=== PATIENT | female | born 1980 ===

== ENCOUNTER 2017-11-01 04:09 | Observation (INO) | payer MEDICAID ==
[2017-11-01 04:15] VITALS: BMI 27.2
--- NOTE | 2017-11-01 04:27 | ED PDOC ---
Arrival/HPI - General Chief Complaint: Chest Pain Time Seen by Provider: 11/01/17 04:13 Historian: Patient - History of Present Illness Narrative History of Present Illness (Text): 11/01/17 04:27 Tracey Stubbs is a 37 year old female who presents to the Emergency department brought in by EMS complaining of chest pain. Patient states she woke up tonight with mid-sternal chest pain radiating down her left arm with associated palpitations. Patient states she experienced a similar episode earlier this week and was seen by her PMD. Patient received Aspirin and sublingual nitroglycerin en route to the hospital. Patient denies any fever, chills, shortness of breath, nausea, vomiting, diarrhea, neck pain, headache, dizziness, or any other complaints. Time/Duration: Other (tonight) Symptom Onset: Gradual Symptom Course: Unchanged Activities at Onset: Light Context: Home Past Medical History - Provider Review Nursing Documentation Reviewed: Yes - Cardiac Other/Comment: Tachycardia - Pulmonary Hx Respiratory Disorders: No - Neurological Hx Neurological Disorder: No - HEENT Hx HEENT Disorder: No - Renal Hx Renal Disorder: No - Endocrine/Metabolic Hx Endocrine Disorders: No - Hematological/Oncological Hx Blood Disorders: No - Integumentary Hx Dermatological Disorder: No - Musculoskeletal/Rheumatological Hx Musculoskeletal Disorders: No - Gastrointestinal Hx Gastrointestinal Disorders: No - Genitourinary/Gynecological Hx Genitourinary Disorders: No - Psychiatric Hx Psychophysiologic Disorder: No Hx Substance Use: No - Surgical History Hx Section: Yes (x2) Hx Hysterectomy: Yes - Anesthesia Hx Anesthesia: Yes Hx Anesthesia Reactions: No Hx Malignant Hyperthermia: No Family/Social History - Physician Review Nursing Documentation Reviewed: Yes Family/Social History: Unknown Family HX Smoking Status: Never Smoked Hx Alcohol Use: No Hx Substance Use: No Allergies/Home Meds Allergies/Adverse Reactions: Allergies Penicillins Allergy (Verified 11/01/17 04:15) RASH Home Medications: Home Meds Medication Instructions Recorded Confirmed No Known Home Med 11/01/17 11/01/17 Review of Systems - Physician Review All systems were reviewed & negative as marked: Yes - Review of Systems Constitutional: Normal. absent: Fevers Eyes: Normal ENT: Normal Respiratory: Normal. absent: SOB Cardiovascular: Chest Pain, Palpitations Gastrointestinal: Normal. absent: Abdominal Pain, Diarrhea, Nausea, Vomiting Genitourinary Female: Normal. absent: Dysuria, Frequency, Hematuria, Urine Output Changes Musculoskeletal: Normal. absent: Back Pain, Neck Pain Skin: Normal. absent: Rash Neurological: Normal. absent: Headache, Dizziness Endocrine: Normal Hemo/Lymphatic: Normal Psychiatric: Normal Physical Exam Vital Signs Reviewed: Yes Vital Signs Temp Pulse Resp BP Pulse Ox 11/01/17 07:06 97.9 F 76 18 128/77 99 11/01/17 06:49 65 18 136/75 98 11/01/17 04:12 98.2 F 85 18 129/88 100 Temperature: Afebrile Blood Pressure: Normal Pulse: Regular Respiratory Rate: Normal Appearance: Positive for: Well-Appearing, Non-Toxic, Comfortable Pain Distress: None Mental Status: Positive for: Alert and Oriented X 3 - Systems Exam Head: Present: Atraumatic, Normocephalic Pupils: Present: PERRL Extroacular Muscles: Present: EOMI Conjunctiva: Present: Normal Mouth: Present: Moist Mucous Membranes Neck: Present: Normal Range of Motion Respiratory/Chest: Present: Clear to Auscultation, Good Air Exchange. No: Respiratory Distress, Accessory Muscle Use Cardiovascular: Present: Regular Rate and Rhythm, Normal S1, S2. No: Murmurs Abdomen: No: Tenderness, Distention, Peritoneal Signs Back: Present: Normal Inspection Upper Extremity: Present: Normal Inspection. No: Cyanosis, Edema Lower Extremity: Present: Normal Inspection. No: Edema Neurological: Present: GCS=15, CN II-XII Intact, Speech Normal Skin: Present: Warm, Dry, Normal Color. No: Rashes Psychiatric: Present: Alert, Oriented x 3, Normal Insight, Normal Concentration Medical Decision Making ED Course and Treatment: 11/01/17 04:27 Impression: 37 year old female complaining of chest pain radiating to her left arm and palpitations. Plan: -- EKG -- Chest X-ray -- Labs, cardiac enzymes -- Reassess and disposition Progress Notes: Reviewed EKG, NSR at [address]-segment elevations or depressions, no T-wave inversions, normal intervals. 11/01/17 05:45 Chest X-ray reviewed, shows no acute processes. Case discussed with medical appliance maker stone carver, who is aware and agrees with plan. Paged Dr. Alford. 11/01/17 05:[address] Alford, who is aware and agrees with plan. Accepts pt in to hospitalist service. Pt will go to remote telemetry observation for chest pain. - Lab Interpretations Lab Results: 11/01/17 04:20 11/01/17 04:20 Lab Results 11/01/17 04:47: PT 11.8, INR 1.03, APTT 28.6 11/01/17 04:40: D-Dimer, Quantitative < 200 11/01/17 04:20: Free T4 1.17, TSH 3rd Generation 1.76 11/01/17 04:20: Hemoglobin A1c 5.3 11/01/17 04:20: Phosphorus 2.8, Magnesium 2.0, Triglycerides 131, Cholesterol 162, LDL Cholesterol Direct 82, HDL Cholesterol 53 11/01/17 04:20: WBC 6.8, RBC 5.01, Hgb 15.0, Hct 42.0, MCV 83.8, MCH 29.9, MCHC 35.7, RDW 12.1, Plt Count 172, MPV 11.7 H 11/01/17 04:20: Sodium 143, Potassium 3.4 L, Chloride 108 H, Carbon Dioxide 22, Anion Gap 17, BUN 13, Creatinine 0.5 L, Est GFR ( Amer) > 60, Est GFR ( Non-Af Amer) > 60, Random Glucose 118 H, Calcium 9.4, Total Bilirubin 2.3 H, AST 28, ALT 34, Alkaline Phosphatase 69, Lactate Dehydrogenase 452, Total Creatine Kinase 112, Troponin I < 0.01, Total Protein 8.0, Albumin 4.8, Globulin 3.2, Albumin/Globulin Ratio 1.5 I have reviewed the lab results: Yes - RAD Interpretation Radiology Orders: 11/01/17 04:21 CHEST PORTABLE [RAD] Stat Human Resources Records Clerk: ED Physician - EKG Interpretation Interpreted by ED Physician: Yes Type: 12 lead EKG - Medication Orders Current Medication Orders: Discontinued Medications Aspirin (Aspirin Chewable) 81 mg PO DAILY [facility] Last Admin: 11/02/17 09:25 Dose: 81 mg Heparin Sodium (Porcine) (Heparin) 5,000 units SC Q12 CAMELIA PRN Reason: Protocol Last Admin: 11/02/17 09:25 Dose: 5,000 units Subcutaneous Administrations Document 11/02/17 09:25 GM (Rec: 11/02/17 09:25 GM [id number]) Injection Site MAR Injection Site Left Abdomen Charges for Administration # of Subcutaneous Administrations 1 Potassium Chloride (K-Dur 20 Meq Er Tab) 20 meq PO ONCE ONE Stop: 11/01/17 07:38 Last Admin: 11/01/17 08:00 Dose: 20 meq - Scribe Statement The provider has reviewed the documentation as recorded by the Millieibcarrol Simpson All medical record entries made by the Millieibcarrol were at my direction and personally dictated by me. I have reviewed the chart and agree that the record accurately reflects my personal performance of the history, physical exam, medical decision making, and the department course for this patient. I have also personally directed, reviewed, and agree with the discharge instructions and disposition. Disposition/Present on Arrival - Present on Arrival Any Indicators Present on Arrival: No History of DVT/PE: No History of Uncontrolled Diabetes: No Urinary Catheter: No History of Decub. Ulcer: No History Surgical Site Infection Following: None - Disposition Have Diagnosis and Disposition been Completed?: Yes Diagnosis: Chest pain Disposition: HOSPITALIZED Disposition Time: 05:46 Patient Plan: Observation Condition: STABLE
[2017-11-01 04:50] LABS: MEAN CELL VOLUME 83.8 fl (80.0-105.0); MEAN CORPUSCULAR HEMOGLOBIN 29.9 pg (25.0-35.0); MEAN CORPUSCULAR HGB CONC 35.7 g/dl (31.0-37.0); MEAN PLATELET VOLUME 11.7 fl (7.0-11.0); RBC 5.01 10^6/uL (3.5-6.1); RED CELL DISTRIBUTION WIDTH 12.1 % (11.5-14.5); WHITE BLOOD COUNT 6.8 10^3/ul (4.5-11.0)
[2017-11-01 04:54] LABS: ALB/GLOB RATIO 1.5 (1.1-1.8); ALBUMIN 4.8 g/dL (3.0-4.8); ALT/SGPT 34 U/L (7-56); AST/SGOT 28 U/L (14-36); BLOOD UREA NITROGEN 13 mg/dL (7-21); CALCIUM 9.4 mg/dL (8.4-10.5); GFR AFRICAN-AMERICAN > 60; GFR NON-AFRICAN AMERICAN > 60
[2017-11-01 05:05] LABS: INR 1.03; PROTHROMBIN TIME 11.8 SECONDS (9.4-12.5)
[2017-11-01 05:05] LABS: TROPONIN I < 0.01 ng/mL
[2017-11-01 05:08] LABS: PARTIAL THROMBOPLASTIN TIME 28.6 Seconds (25.1-36.5)
[2017-11-01] MEDS ORDERED: Potassium Chloride 20 mEq ER Tab PO ONE (07:37)
--- NOTE | 2017-11-01 07:54 | CP.PCM.HP ---
<Tea Cabrera - Last Filed: 11/01/17 16:01> History of Present Illness - History of Present Illness History of Present Illness: PGY3 Medicine note for Dr. Chaidez CC: I had tachycardia and my chest hurt HPI: 37 year old female PMHx of paroxysmal tachycardia on no meds presents with chest pain and palpitations that woke her up. Patient reports pain was midsternal 9/10 and radiated to her left arm and up the left side of her jaw. She also complained of shortness of breath and dizziness. Patient did not take anything to alleviate the pain and could not identify any exacerbating factors. Patient was brought in by EMS and she received a dose of ASA and sublingual nitro. In the ED patient reported the sharp pain had resolved and she was experiencing some mild left sided chest pressure 1-2/10 in intensity. In the ED she had no associated SOB, palpitations, and dizziness. The last time the patient had experienced similar symptoms was 1 week ago. Patient denied any recent travel; her recent sick contact was her 2 year old son who had pneumonia 1 month ago. Of note, patient reports she has had paroxysmal tachcyardia since she was 11 years old; these episodes usually last a couple minutes and resolve spontaneously. Patient was seen by a communication equipment mechanic and had an echo but she never followed up. ROS: admits: headache, dizziness [resolved], chest pressure, palpitations [resolved] , dyspnea [resolved], denies: fever, chills, cough, abdominal pain, nausea, vomiting, bowel/bladder complaints, pain/swelling in her legs b/l PMHx: paroxysmal tachycardia PSurgHx: 2 c-sections (2012, 2014) and partial hysterectomy (2017) FamHx: father with atherosclerosis, mother HTN, grandmother [place] SocHx: no tobacco hx or use; used to drink EtOH socially [1 glass of wine at a green party] but no longer does; denies drug use. Meds: none ALL: PCN Present on Admission - Present on Admission Any Indicators Present on Admission: No Review of Systems - Review of Systems All systems: reviewed and no additional remarkable complaints except - Constitutional Constitutional: As Per HPI. absent: Chills, Fever - EENT Eyes: As Per HPI. absent: Blurred Vision Ears: As Per HPI, Dizziness Nose/Mouth/Throat: As Per HPI. absent: Sore Throat - Cardiovascular Cardiovascular: As Per HPI, Chest Pain, Dyspnea, Palpitations - Respiratory Respiratory: As Per HPI, Dyspnea. absent: Cough - Gastrointestinal Gastrointestinal: As Per HPI. absent: Abdominal Pain, Constipation, Diarrhea, Nausea, Vomiting - Genitourinary Genitourinary: As Per HPI. absent: Dysuria, Hematuria - Integumentary Integumentary: As Per HPI. absent: Dry Skin - Neurological Neurological: As Per HPI, Headaches. absent: Dizziness - Psychiatric Psychiatric: As Per HPI. absent: Anxiety - Endocrine Endocrine: As Per HPI, Palpitations. absent: Polydipsia, Polyphagia - Hematologic/Lymphatic Hematologic: As Per HPI. absent: Easy Bleeding, Easy Bruising Past Patient History - Past Social History Smoking Status: Never Smoked - CARDIAC Other/Comment: Tachycardia - PULMONARY Hx Respiratory Disorders: No - NEUROLOGICAL Hx Neurological Disorder: No - HEENT Hx HEENT Problems: No - RENAL Hx Chronic Kidney Disease: No - ENDOCRINE/METABOLIC Hx Endocrine Disorders: No - HEMATOLOGICAL/ONCOLOGICAL Hx Blood Disorders: No - INTEGUMENTARY Hx Dermatological Problems: No - MUSCULOSKELETAL/RHEUMATOLOGICAL Hx Musculoskeletal Disorders: No - GASTROINTESTINAL Hx Gastrointestinal Disorders: No - GENITOURINARY/GYNECOLOGICAL Hx Genitourinary Disorders: No - PSYCHIATRIC Hx Psychophysiologic Disorder: No Hx Substance Use: No - SURGICAL HISTORY Hx Section: Yes (x2) Hx Hysterectomy: Yes - ANESTHESIA Hx Anesthesia: Yes Hx Anesthesia Reactions: No Hx Malignant Hyperthermia: No Meds Allergies/Adverse Reactions: Allergies Allergy/AdvReac Type Severity Reaction Status Date / Time Penicillins Allergy RASH Verified 11/01/17 04:15 Physical Exam - Constitutional Appears: Non-toxic, No Acute Distress - Head Exam Head Exam: ATRAUMATIC, NORMAL INSPECTION, NORMOCEPHALIC - Eye Exam Eye Exam: EOMI, Normal appearance, PERRL. absent: Conjunctival injection, Scleral icterus Pupil Exam: NORMAL ACCOMODATION - ENT Exam ENT Exam: Mucous Membranes Moist - Neck Exam Neck exam: Positive for: Full Rom, Normal Inspection. Negative for: Lymphadenopathy - Respiratory Exam Respiratory Exam: Clear to Auscultation Bilateral, NORMAL BREATHING PATTERN. absent: Accessory Muscle Use, Rales, Rhonchi, Wheezes, Respiratory Distress - Cardiovascular Exam Cardiovascular Exam: REGULAR RHYTHM, RRR, +S1, +S2. absent: Bradycardia, Tachycardia - GI/Abdominal Exam GI & Abdominal Exam: Normal Bowel Sounds, Soft. absent: Firm, Guarding, Tenderness - Rectal Exam Rectal Exam: Deferred - Extremities Exam Extremities exam: Positive for: normal inspection, pedal pulses present. Negative for: pedal edema, tenderness - Back Exam Back exam: NORMAL INSPECTION. absent: rash noted - Neurological Exam Neurological exam: Alert, CN II-XII Intact, Oriented x3 - Psychiatric Exam Psychiatric exam: Normal Affect, Normal Mood - Skin Skin Exam: Dry, Intact, Normal Color, Warm Results - Vital Signs Recent Vital Signs: Last Vital Signs Temp 97.9 F 11/01/17 07:06 Pulse 76 11/01/17 07:06 Resp 18 11/01/17 07:06 BP 128/77 11/01/17 07:06 Pulse Ox 99 11/01/17 07:06 - Labs Result Diagrams: 11/01/17 04:20 11/01/17 04:20 Assessment & Plan - Assessment and Plan (Free Text) Assessment: 37 year old female PMHx of paroxysmal tachycardia on no meds presents with chest pain and palpitations that woke her up. Patient admitted to TELE-Obs to rule out ACS Plan: Chest pain r/o ACS -troponin negative x 1 in ED f/u troponin x 2 -EKG: NSR @ 87bpm -Thyroid panel WNL TSH: 1.76 Free T4: 1.17 -Lipid panel WNL LDL: 82 HDL: 53 Cholesterol; 162 T -HgbA1c: 5.3 -Patient started on ASA 81mg po qd -2D Echo: unremarkable -D-Dimer < 200 -Venous dopplers: negative for DVT b/l -Cardio consult: Dr. Ferraro DVT ppx: Heparin 5000u q12; SCDs Diet: Heart Healthy Diet Case discussed with Dr. Dm Cabrera PGY3 <Kimberley Chaidez R - Last Filed: 11/02/17 13:49> Results - Vital Signs Recent Vital Signs: Last Vital Signs Temp 97.8 F 11/02/17 06:00 Pulse 73 11/02/17 10:00 Resp 18 11/02/17 06:00 BP 123/78 11/02/17 06:00 Pulse Ox 98 11/02/17 06:00 - Labs Result Diagrams: 11/02/17 06:30 11/02/17 06:30 Labs: Laboratory Results - last 24 hr 11/01/17 11/01/17 11/02/17 15:50 18:50 06:30 WBC 5.2 D RBC 4.79 Hgb 14.3 Hct 40.8 MCV 85.2 MCH 29.9 MCHC 35.0 RDW 12.3 Plt Count 161 MPV 11.6 H Gran % 51.3 Lymph % (Auto) 38.3 H [place] % (Auto) 7.3 H Eos % (Auto) 2.9 Baso % (Auto) 0.2 Gran # 2.68 Lymph # (Auto) 2.0 [place] # (Auto) 0.4 Eos # (Auto) 0.2 Baso # (Auto) 0.01 Sodium Potassium Chloride Carbon Dioxide Anion Gap BUN Creatinine Est GFR ( Amer) Est GFR (Non-Af Amer) Random Glucose Calcium Total Bilirubin AST ALT Alkaline Phosphatase Troponin I 0.05 Total Protein Albumin Globulin Albumin/Globulin Ratio Urine Opiates Screen Negative Urine Methadone Screen Negative Ur Barbiturates Screen Negative Ur Phencyclidine Scrn Negative Ur Amphetamines Screen Negative U Benzodiazepines Scrn Negative U Oth Cocaine Metabols Negative U Cannabinoids Screen Negative 11/02/17 06:30 WBC RBC Hgb Hct MCV MCH MCHC RDW Plt Count MPV Gran % Lymph % (Auto) [place] % (Auto) Eos % (Auto) Baso % (Auto) Gran # Lymph # (Auto) [place] # (Auto) Eos # (Auto) Baso # (Auto) Sodium 139 Potassium 4.3 Chloride 105 Carbon Dioxide 22 Anion Gap 17 BUN 13 Creatinine 0.5 L Est GFR ( Amer) > 60 Est GFR (Non-Af Amer) > 60 Random Glucose 89 Calcium 9.1 Total Bilirubin 2.3 H AST 21 ALT 29 Alkaline Phosphatase 60 Troponin I Total Protein 7.0 Albumin 4.3 Globulin 2.7 Albumin/Globulin Ratio 1.6 Urine Opiates Screen Urine Methadone Screen Ur Barbiturates Screen Ur Phencyclidine Scrn Ur Amphetamines Screen U Benzodiazepines Scrn U Oth Cocaine Metabols U Cannabinoids Screen Attending/Attestation - Attestation I have personally seen and examined this patient.: Yes I have fully participated in the care of the patient.: Yes I have reviewed all pertinent clinical information: Yes Notes (Text): Patient seen and examined by me at 10:00AM with resident 11/01/17. Case including HPI, physical exam, and assessment and plan discussed with resident. Agree with above with following additions/corrections. Patient is a 37-year-old female with past medical history significant for paroxysmal tachycardia that presented to the emergency room with palpitations and chest pain. Patient states that the palpitations and pain woke her up from her sleep. She states that the pain lasted approximately 45 minutes and was sharp in nature. The pain was in her midsternal area and radiated to her left arm and left jaw. Scale 1-10, 10 being the worst pain she has ever felt, patient states that the pain was a 9 out of 10. She also had associated shortness of breath and dizziness. She did not take any medications for this at home. She states that this happened approximately a week ago and lasted for approximately 55 minutes. She states that she has had this happen before, however, it has only lasted a short period of time. Patient received aspirin and sublingual nitroglycerin in the EMS. Chest pain improved with this. She denies any current shortness of breath or palpitations. No nausea, vomiting, or abdominal pain. No neck or back pain. No calf pain. No dysuria. Occitan-speaking biomedical engineer used for translation. 12 point review systems reviewed by me. Please see HPI. All other systems are negative. Physical exam: Gen: Awake and alert sitting up in bed in no acute distress HEENT: Normocephalic atraumatic. Extraocular muscles intact, pupils equal reactive. Oropharynx is pink and moist, no pharyngeal erythema or exudate appreciated. Neck is supple. Hearing grossly intact. Ears and nose externally unremarkable Cardiovascular: Normal rhythm. Normal S1, S2. No murmurs, rubs, or gallops appreciated Pulmonary: Normal respiratory effort. No rhonchi, rales or wheezing appreciated. Gastrointestinal: Soft, nontender, nondistended, positive bowel sounds all 4 quadrants, no guarding. Musculoskeletal: Normal range of motion all extremities, no calf tenderness, no edema appreciated, positive left anterior chest wall tenderness with palpation Central nervous system: AAO x 3. 5/5 muscle strength all extremities. CN 2-12 grossly intact Dermatologic: Skin warm and dry Assessment and plan: Patient is a 37-year-old female with past medical history significant for paroxysmal tachycardia that presented to the emergency room with palpitations and chest pain. 1. Chest pain and palpitations. Improved. Likely musculoskeletal. Rule out ACS. Cardiology following, recommendations appreciated. D-dimer ordered. Bilateral lower extremity venous Dopplers ordered to rule out DVT. Troponin negative so far. Follow-up serial troponins. 2-D echo pending. Chest x-ray per radiologist shows no active disease. Patient received aspirin and the EMS. Continue aspirin 81 mg by mouth daily until ACS ruled out. Monitor on telemetry. 2. Hypokalemia. We'll give oral potassium. Follow up repeat labs. 3. Elevated blood glucose level. Patient not fasting. Follow-up hemoglobin A1c. 4. DVT prophylaxis. Heparin 5. Patient is a full code Case was discussed in detail with the patient regarding current diagnosis and treatment plan.
[2017-11-01 07:57] LABS: FREE T4 1.17 ng/dL (0.78-2.19)
--- NOTE | 2017-11-01 08:07 | RAD ---
Date of service: 11/01/2017 HISTORY: chest pain COMPARISON: No prior. FINDINGS: LUNGS: No active pulmonary disease. PLEURA: No significant pleural effusion identified, no pneumothorax apparent. CARDIOVASCULAR: Normal. OSSEOUS STRUCTURES: No significant abnormalities. VISUALIZED UPPER ABDOMEN: Normal. OTHER FINDINGS: None. IMPRESSION: No active disease.
--- NOTE | 2017-11-01 09:18 | CARD ---
APPROVED REPORT Date of service: 11/01/2017 EKG Measurement Heart [id number] <Conclusion> Normal sinus rhythm Normal ECG
--- NOTE | 2017-11-01 11:04 | US ---
Bilateral lower extremity venous ultrasound Clinical history: Pain and swelling. Rule out DVT. Findings: The visualized deep venous system of both lower extremities Sarna graft a normal and compressible. Normal waveforms with augmentation are present. There is no sonographic evidence for deep venous thrombosis in the visualized segments of both lower extremities.
--- NOTE | 2017-11-01 14:10 | CON ---
Copied To: Adeel Ferraro MD Attending MD: Adeel Ferraro MD DATE: 11/01/2017 HISTORY OF PRESENT ILLNESS: The patient is 37-year-old female originally from [place], who has no significant past medical history, presented because of an episode of palpitation followed by generalized chest discomfort as well as dizziness. The patient is unaware of any prior cardiac history in the past. The patient also reported recurring episodes of pain behind her left knee. The patient denies any history of DVT in the past and is not on control pills. She did have tubal ligation after having 2 children. SOCIAL HISTORY: Nonsmoker, nondrinker. MEDICATIONS: Aspirin 81 mg once a day, heparin 5000 units subcutaneous twice a day. REVIEW OF SYSTEMS: No nausea or vomiting. No fever or chills. PHYSICAL EXAMINATION: GENERAL: The patient is middle-aged female who does not appear to be in any distress. VITAL SIGNS: Blood pressure 128/77, heart 76, temperature 97.9, respiration 15. HEENT: Normocephalic. CHEST: Clear. HEART: Sounds regular. ABDOMEN: Soft. EXTREMITIES: No edema or calf tenderness. LABORATORY DATA: SMA-7, sodium 143, potassium 3.4, chloride 108, CO2 of 22, glucose 118, BUN 13, creatinine 0.5. One set of troponin is negative. Lipid profile is within normal limits. TSH level is within normal limits. PT/PTT, INR, and D-dimer are within normal limits. EKG revealed normal sinus rhythm rate of 87. ASSESSMENT: 1. Atypical chest pain. Rule out myocardial infarction. 2. History of palpitation. 3. Mild hypokalemia, which has been replaced with oral K-Dur 20 milliequivalents. RECOMMENDATIONS: Case was discussed with the medical team. Continue current aspirin and subcutaneous heparin. Followup echocardiogram study and obtain urine for drug screen. Consider venous Doppler of the left lower extremity. Adeel Ferraro MD
--- NOTE | 2017-11-01 14:47 | CARD ---
APPROVED REPORT Date of service: 11/01/2017 EXAM: Two-dimensional and M-mode echocardiogram with Doppler and color Doppler. INDICATION Chest Pain 2D DIMENSIONS Left Atrium (2D)2.9 (1.6-4.0cm)IVSd0.8 (0.7-1.1cm) LVDd4.1 (3.9-5.9cm)PWd1.0 (0.7-1.1cm) LVDs2.7 (2.5-4.0cm)FS (%) 33.3 % LVEF (%)62.3 (>50%) M-Mode DIMENSIONS Aortic Root2.40 (2.2-3.7cm)Aortic Cusp Exc.1.50 (1.5-2.0cm) Aortic Valve AoV Peak Zsmlvavr683.0cm/Lindsay Peak GR.10mmHg Mitral Valve MV E Eoxhwhft25.2cm/sMV A Gfusqfyl09.4cm/sE/A ratio0.9 TDI E/Lateral E'0.0E/Medial E'0.0 Tricuspid Valve TR Peak Relxtlcl003vt/sRAP [id number] Peak Gr.19mmHg [id number] LEFT VENTRICLE The left ventricle is normal size. There is normal left ventricular wall thickness. The left ventricular function is normal. The left ventricular ejection fraction is within the normal range. There is normal LV segmental wall motion. RIGHT VENTRICLE The right ventricle is normal size. The right ventricular systolic function is normal. ATRIA The left atrium size is normal. The right atrium size is normal. The interatrial septum is intact with no evidence for an atrial septal defect. AORTIC VALVE The aortic valve is normal in structure. No aortic regurgitation is present. There is no aortic valvular stenosis. MITRAL VALVE The mitral valve is normal in structure. There is no mitral valve regurgitation noted. TRICUSPID VALVE The tricuspid valve is normal in structure. There is mild tricuspid regurgitation. PULMONIC VALVE The pulmonary valve is normal in structure. GREAT VESSELS The aortic root is normal in size. The IVC is normal in size and collapses >50% with inspiration. PERICARDIAL EFFUSION There is no pleural effusion. There is no pericardial effusion. <Conclusion> Normal Echo study.
[2017-11-01 18:54] VITALS: O2SAT 98
[2017-11-01 19:44] LABS: BARBITURATES, UR NEGATIVE (NEGATIVE); BENZODIAZEPINES, UR NEGATIVE (NEGATIVE); OPIATES, UR NEGATIVE (NEGATIVE); PHENCYCLIDINE, UR NEGATIVE (NEGATIVE)
[2017-11-02 07:16] LABS: BASO # 0.01 K/mm3 (0.0-2.0); BASO % 0.2 % (0.0-3.0); EOS # 0.2 (0.0-0.7); EOS % 2.9 % (1.5-5.0); GRAN # 2.68 (1.4-6.5); GRAN % 51.3 % (50.0-68.0); HEMOGLOBIN 14.3 g/dL (12.0-16.0); LYMPH % 38.3 % (22.0-35.0); MEAN CELL VOLUME 85.2 fl (80.0-105.0); MEAN CORPUSCULAR HEMOGLOBIN 29.9 pg (25.0-35.0); MEAN PLATELET VOLUME 11.6 fl (7.0-11.0); MONO # 0.4 (0.1-0.6); MONO % 7.3 % (1.0-6.0); RBC 4.79 10^6/uL (3.5-6.1); RED CELL DISTRIBUTION WIDTH 12.3 % (11.5-14.5); WHITE BLOOD COUNT 5.2 10^3/ul (4.5-11.0)
--- NOTE | 2017-11-02 07:23 | CP.PCM.DIS ---
Provider - Provider Date of Admission: 11/01/17 05:49 Attending physician: Kimberley Chaidez DO Primary care physician: Pat Richard MD Consults: Cardiology Dr. Ferraro Time Spent in preparation of Discharge (in minutes): 45 Hospital Course - Lab Results Lab Results: Most Recent Lab Values WBC 6.8 10^3/ul (4.5-11.0) 11/01/17 04:20 RBC 5.01 10^6/uL (3.5-6.1) 11/01/17 04:20 Hgb 15.0 g/dL (12.0-16.0) 11/01/17 04:20 Hct 42.0 % (36.0-48.0) 11/01/17 04:20 MCV 83.8 fl (80.0-105.0) 11/01/17 04:20 MCH 29.9 pg (25.0-35.0) 11/01/17 04:20 MCHC 35.7 g/dl (31.0-37.0) 11/01/17 04:20 RDW 12.1 % (11.5-14.5) 11/01/17 04:20 Plt Count 172 10^3/uL (120.0-450.0) 11/01/17 04:20 MPV 11.7 fl (7.0-11.0) H 11/01/17 04:20 PT 11.8 SECONDS (9.4-12.5) 11/01/17 04:47 INR 1.03 11/01/17 04:47 APTT 28.6 Seconds (25.1-36.5) 11/01/17 04:47 D-Dimer, Quantitative < 200 ng/mL 11/01/17 04:40 Sodium 143 mmol/L (132-148) 11/01/17 04:20 Potassium 3.4 mmol/L (3.6-5.0) L 11/01/17 04:20 Chloride 108 mmol/L (98-107) H 11/01/17 04:20 Carbon Dioxide 22 mmol/L (21-33) 11/01/17 04:20 Anion Gap 17 (10-20) 11/01/17 04:20 BUN 13 mg/dL (7-21) 11/01/17 04:20 Creatinine 0.5 mg/dl (0.7-1.2) L 11/01/17 04:20 Est GFR ( Amer) > 60 11/01/17 04:20 Est GFR (Non-Af Amer) > 60 11/01/17 04:20 Random Glucose 118 mg/dL (70-110) H 11/01/17 04:20 Hemoglobin A1c 5.3 % (4.2-6.5) 11/01/17 04:20 Calcium 9.4 mg/dL (8.4-10.5) 11/01/17 04:20 Phosphorus 2.8 mg/dL (2.5-4.5) 11/01/17 04:20 Magnesium 2.0 mg/dL (1.7-2.2) 11/01/17 04:20 Total Bilirubin 2.3 mg/dL (0.2-1.3) H 11/01/17 04:20 AST 28 U/L (14-36) 11/01/17 04:20 ALT 34 U/L (7-56) 11/01/17 04:20 Alkaline Phosphatase 69 U/L (38-126) 11/01/17 04:20 Lactate Dehydrogenase 452 U/L (333-699) 11/01/17 04:20 Total Creatine Kinase 112 U/L (35-230) 11/01/17 04:20 Troponin I 0.05 ng/mL 11/01/17 15:50 Total Protein 8.0 g/dL (5.8-8.3) 11/01/17 04:20 Albumin 4.8 g/dL (3.0-4.8) 11/01/17 04:20 Globulin 3.2 gm/dL 11/01/17 04:20 Albumin/Globulin Ratio 1.5 (1.1-1.8) 11/01/17 04:20 Triglycerides 131 mg/dL (35-160) 11/01/17 04:20 Cholesterol 162 mg/dL (130-200) 11/01/17 04:20 LDL Cholesterol Direct 82 mg/dL (0-129) 11/01/17 04:20 HDL Cholesterol 53 mg/dL (29-60) 11/01/17 04:20 Free T4 1.17 ng/dL (0.78-2.19) 11/01/17 04:20 TSH 3rd Generation 1.76 mIU/mL (0.46-4.68) 11/01/17 04:20 Urine Opiates Screen Negative (NEGATIVE) 11/01/17 18:50 Urine Methadone Screen Negative (NEGATIVE) 11/01/17 18:50 Ur Barbiturates Screen Negative (NEGATIVE) 11/01/17 18:50 Ur Phencyclidine Scrn Negative (NEGATIVE) 11/01/17 18:50 Ur Amphetamines Screen Negative (NEGATIVE) 11/01/17 18:50 U Benzodiazepines Scrn Negative (NEGATIVE) 11/01/17 18:50 U Oth Cocaine Metabols Negative (NEGATIVE) 11/01/17 18:50 U Cannabinoids Screen Negative (NEGATIVE) 11/01/17 18:50 - Hospital Course Hospital Course: Upon Admission 37 year old female PMHx of paroxysmal tachycardia on no meds presents with chest pain and palpitations that woke her up. Patient reports pain was midsternal 9/10 and radiated to her left arm and up the left side of her jaw. She also complained of shortness of breath and dizziness. Patient did not take anything to alleviate the pain and could not identify any exacerbating factors. Patient was brought in by EMS and she received a dose of ASA and sublingual nitro. In the ED patient reported the sharp pain had resolved and she was experiencing some mild left sided chest pressure 1-2/10 in intensity. In the ED she had no associated SOB, palpitations, and dizziness. The last time the patient had experienced similar symptoms was 1 week ago. Patient denied any recent travel; her recent sick contact was her 2 year old son who had pneumonia 1 month ago. Of note, patient reports she has had paroxysmal tachcyardia since she was 11 years old; these episodes usually last a couple minutes and resolve spontaneously. Patient was seen by a sales and marketing coordinator and had an echo but she never followed up Hospital Course Patient was admitted to [facility] for ACS work up. Cardiology Dr. Lauren was consulted. Cardiac enzymes were negative x 3 and EKG on admission was NSR @ 87bpm. Patient's lab work was unremarkable with HgbA1c 5.3, Lipid panel within normal limits (LDL 82, HDL 53, Cholesterol 162, TG 131), and Thyroid panel within normal limits (TSH 1.76, Free T4 1.17). Patient had a 2D Echo which was unremarkable and venous dopplers of the bilateral lower extremities were negative for DVT. Patient had a UDS which was negative. Patient clinically improved and symptoms resolved on day of discharge. Upon Discharge Upon discharge patient to follow up with PMD within 7 days. Patient to also follow up with Ethics Manager within 10 days and should have a stress test done outpatient. Patient may resume all activities as per usual. If symptoms return patient to visit ER. Instructions discussed in detail with patient who understands and agrees. Discharge Exam - Head Exam Head Exam: ATRAUMATIC, NORMAL INSPECTION, NORMOCEPHALIC - Eye Exam Eye Exam: EOMI, Normal appearance, PERRL Pupil Exam: NORMAL ACCOMODATION - ENT Exam ENT Exam: Mucous Membranes Moist - Neck Exam Neck exam: Full Rom, Normal Inspection - Respiratory Exam Respiratory Exam: Clear to PA & Lateral, NORMAL BREATHING PATTERN, UNREMARKABLE. absent: Accessory Muscle Use, Rales, Rhonchi, Wheezes, Respiratory Distress - Cardiovascular Exam Cardiovascular Exam: RRR, +S1, +S2. absent: Systolic Murmur - GI/Abdominal Exam GI & Abdominal Exam: Normal Bowel Sounds, Soft. absent: Firm, Guarding, Rigid, Tenderness - Rectal Exam Rectal Exam: Deferred - Extremities Exam Extremities exam: normal capillary refill, normal inspection, pedal pulses present - Back Exam Back exam: NORMAL INSPECTION. absent: rash noted - Neurological Exam Neurological exam: Alert, CN II-XII Intact, Oriented x3 - Psychiatric Exam Psychiatric exam: Normal Affect, Normal Mood - Skin Skin Exam: Dry, Intact, Normal Color, Warm Discharge Plan - Follow Up Plan Condition: STABLE Disposition: HOME/ ROUTINE Instructions: Chest Pain, Chest Pain (DC), Chest Pain (GEN) Additional Instructions: Upon discharge, please follow up with Primary care doctor within 7 days. Please also follow up with Ethics Manager within 10 days and have a stress test done outpatient. You may resume all activities as per usual. If symptoms return, please return to the emergency room. Al momento del soledad, hiren un seguimiento con el mdico de atencin primaria dentro de los 7 bermeo. Por favor, tambin hiren un seguimiento con Ethics Manager dentro de los 10 bermeo y hgase un examen de estrs elen paciente externo. Puede reanudar todas las actividades elen de costumbre. Si los sntomas regresan, regrese a la corrina de emergencias. Referrals: Pat Richard MD [Primary Care Provider] -
[2017-11-02 07:39] LABS: ALB/GLOB RATIO 1.6 (1.1-1.8); ALBUMIN 4.3 g/dL (3.0-4.8); ALT/SGPT 29 U/L (7-56); AST/SGOT 21 U/L (14-36); BLOOD UREA NITROGEN 13 mg/dL (7-21); CALCIUM 9.1 mg/dL (8.4-10.5); GFR AFRICAN-AMERICAN > 60; GFR NON-AFRICAN AMERICAN > 60
[2017-11-02 08:53] VITALS: BP 123/78; RESP 18; TEMP 97.8
[2017-11-02 10:49] VITALS: PULSE 73
--- NOTE | 2017-11-02 16:58 | PN ---
Copied To: Adeel Ferraro MD Attending MD: Adeel Ferraro MD DATE: 11/02/2017 FOLLOWUP SUBJECTIVE: The patient denies chest pain or shortness of breath. PHYSICAL EXAMINATION: VITAL SIGNS: Blood pressure 123/78, heart rate 62, temperature 97.8, respirations 18. HEENT: Normocephalic. CHEST: Clear. HEART: S1, S2 regular. ABDOMEN: Soft. EXTREMITIES: No edema. LABORATORY DATA: Urine drug screen is negative. Today's SMA-7 is within normal limits except of creatinine 0.5. Free T4 and TSH level are within normal limit. Today's hemoglobin and hematocrit, white count and platelet count are within normal limit. Venous Doppler of lower extremity: No evidence of DVT in the visualized segments of both lower extremities. Echocardiography study report: Normal study ASSESSMENT: Atypical chest pain. RECOMMENDATIONS: The patient can be discharged on aspirin therapy. Recommend an outpatient treadmill stress test. Adeel Ferraro MD
== END 2017-11-02 14:42 | disposition home or self-care (01) ==
LOC: ED 04:09 → ERH 05:49 → 3RNO 08:03
PROVIDERS: ADMIT Internal Medicine; ATTEND Hospitalist
DX: R07.2 Precordial pain (principal); E87.6 Hypokalemia; Z79.82 Long term (current) use of aspirin; Z90.710 Acquired absence of both cervix and uterus; Z98.891 History of uterine scar from previous surgery; Z82.49 Family history of ischemic heart disease and other diseases of the circulatory system
CPT/HCPCS: 36415; 71045; 80053; 80061; 80324; 80345; 80346; 80349; 80353; 80358; 80361; 82550; 83036; 83615; 83735; 83992; 84100; 84439; 84443; 84484; 85025; 85027; 85378; 85610; 85730; 93005; 93306; 93970; 99285; G0378; J1644